=== PATIENT | male | born 1940 | race Caucasian/White ===

== ENCOUNTER 2022-07-03 13:20 | Emergency (ER) | payer MEDICARE, OTHER ==
[2022-07-03] MEDS ORDERED: Lidocaine 1% with EPINEPHrine 1:100,000 20 ML MDV INJECT ONE (15:16)
[2022-07-03] MEDS ORDERED: Lidocaine 1% with EPINEPHrine 1:100,000 10 ML MDV ONE ×2 (16:04→16:14)
[2022-07-03] MEDS ORDERED: Cephalexin 500 MG Cap PO ONE (18:25)
== END 2022-07-03 18:35 | disposition home or self-care (01) ==
LOC: JD.ED 13:20
DX: S81.811A Laceration without foreign body, right lower leg, initial encounter (principal); W18.30XA Fall on same level, unspecified, initial encounter
CPT/HCPCS: 12004; 73562-26-LT; 73562-LT; 73590-26-RT; 73590-RT; 99283